=== PATIENT | female | born 1980 | race Caucasian/White ===

== ENCOUNTER 2020-05-28 10:34 | Day surgery (SDC) | payer BC, SELFPAY ==
[~2020-05-28] VITALS: Ht 165.1 cm; Wt 105.7 kg
[2020-05-28 11:15] LABS: HCG,QUAL RESULT NEGATIVE (NEGATIVE)
[2020-05-28] MEDS ORDERED: SIMETHICONE 80 MG TAB.CHEW PO PRN (12:30)
[2020-05-28] MEDS ORDERED: DOCUSATE SODIUM 100 MG CAPSULE PO PRN (12:30)
[2020-05-28] MEDS ORDERED: IBUPROFEN 800 MG TABLET PO PRN (12:30)
[2020-05-28] MEDS ORDERED: OXYCODONE/ACETAMINOPHEN 5-325 TABLET PO PRN ×2 (12:30)
[2020-05-28] MEDS ORDERED: ONDANSETRON HCL 4 MG/2 ML VIAL IVP PRN ×2 (12:30→13:30)
[2020-05-28] MEDS ORDERED: HYDROmorphone 1 MG INJ. 1 MG/ML AMPUL IVP PRN (13:30)
[2020-05-28] MEDS ORDERED: MEPERIDINE HCL/PF 25 MG/ML DISP.SYRIN IVP PRN (13:30)
[2020-05-28] MEDS: LR 1,000 ML IV SCH ×4 (13:30→22:04)
[2020-05-28] MEDS ORDERED: METOCLOPRAMIDE HCL 10 MG/2 ML VIAL IVP PRN (13:30)
[2020-05-28] MEDS ORDERED: MIDAZOLAM HCL 2 MG/2 ML VIAL (VERSED) IVP PRN (13:30)
[2020-05-28] MEDS: HYDROmorphone 1 MG INJ. 1 MG/ML AMPUL IVP PRN ×3 (14:25→15:05)
[2020-05-28 16:30] VITALS: BP_SYST 146
[2020-05-28 16:45] VITALS: BP_SYST 131
[2020-05-28 17:00] VITALS: BP_SYST 130
[2020-05-28] MEDS: KETOROLAC TROMETHAMINE 30 MG VIAL IVP PRN (17:02)
[2020-05-28 17:11] VITALS: BP_SYST 146
[2020-05-28 17:32] VITALS: BP_SYST 139
[2020-05-28 20:06] VITALS: BP_SYST 130
[2020-05-28] MEDS ORDERED: TEMAZEPAM 15 MG CAPSULE PO PRN (21:00)
[2020-05-28] MEDS: HYDROmorphone 2 MG/ML VIAL IVP PRN (22:23)
[2020-05-29 00:17] VITALS: BP_SYST 121
[2020-05-29] MEDS: HYDROmorphone 2 MG/ML VIAL IVP PRN (02:59)
[2020-05-29] MEDS: LR 1,000 ML IV SCH ×5 (04:30→19:52)
[2020-05-29] MEDS: KETOROLAC TROMETHAMINE 30 MG VIAL IVP PRN (05:19)
[2020-05-29 08:00] VITALS: BP_SYST 123
[2020-05-29] MEDS ORDERED: ACET-10 PO (10:42)
[2020-05-29] MEDS ORDERED: DOCU-144 PO (10:44)
[2020-05-29] MEDS ORDERED: IBUP-1971 PO (10:44)
[2020-05-29 10:58] VITALS: BP_SYST 123
== END 2020-05-29 13:40 | disposition home or self-care (01) ==
LOC: SMU 10:34 → SDS 10:34 → SMU 16:45 → SDS 05-29 13:40
PROVIDERS: ATTEND Obstetrics & Gynecology
DX: D25.1 Intramural leiomyoma of uterus (principal); E66.01 Morbid (severe) obesity due to excess calories; Z68.38 Body mass index [BMI] 38.0-38.9, adult; Z90.49 Acquired absence of other specified parts of digestive tract; N92.0 Excessive and frequent menstruation with regular cycle; N83.8 Other noninflammatory disorders of ovary, fallopian tube and broad ligament; Z80.41 Family history of malignant neoplasm of ovary; Z79.899 Other long term (current) drug therapy; Z20.828 Contact with and (suspected) exposure to other viral communicable diseases
CPT/HCPCS: 58180; 64488; 84703; 88307; C1727; J1170 ×2; J1885 ×2; J7120 ×2; U0003; 86920; E0190